=== PATIENT | female | born 1995 | race Caucasian/White ===

== ENCOUNTER 2018-02-27 19:15 | Inpatient (IN) | payer OTHER ==
[~2018-02-27] VITALS: Ht 165.1 cm; Wt 77.8 kg
[2018-02-27] MEDS ORDERED: SODIUM CHLORIDE FLUSH 10ML SYR IVF ONE (20:00)
[2018-02-27] MEDS ORDERED: ONDANSETRON ODT 4 MG PO ONE ×3 (20:00→23:00)
[2018-02-27 20:21] LABS: BASOPHILS # (AUTO) 0.04 x10^3/uL (0-0.3); BASOPHILS % (AUTO) 1 % (0-1); EOSINOPHILS # (AUTO) 0.53 x10^3/uL (0-0.8); EOSINOPHILS % (AUTO) 7 % (1-7); LYMPHOCYTES # (AUTO) 2.97 x10^3/uL (1-6.1); LYMPHOCYTES % (AUTO) 38 % (22-44); MD NO; MEAN CORPUSCULAR HEMOGLOBIN 31.2 pg (27.0-34.8); MEAN CORPUSCULAR HGB CONC 33.5 g/dL (32.4-35.8); MEAN PLATELET VOLUME 8.5 fL (7.4-10.4); MONOCYTES # (AUTO) 0.71 x10^3/uL (0-1.4); MONOCYTES % (AUTO) 9 % (2-9); NEUTROPHILS # (AUTO) 3.66 x10^3/uL (1.8-8.0); NEUTROPHILS % (AUTO) 46 % (42-75); PLATELET COUNT 296 x10^3/uL (130-400); RED BLOOD COUNT 4.34 x10^6/uL (3.82-5.3); RED CELL DISTRIBUTION WIDTH 12.9 % (9.6-15.2)
[2018-02-27 20:31] LABS: ALANINE AMINOTRANSFERASE 17 U/L (12-78); ALBUMIN 3.8 g/dL (3.4-5.0); ANION GAP 9 mmol/L (5-15); CHLORIDE 110 mmol/L (98-107); CREATININE 0.69 mg/dL (0.55-1.02)
[2018-02-27 20:36] LABS: ACETAMINOPHEN 34 mcg/mL (10-30); ALKALINE PHOSPHATASE 80 U/L (45-117); BILIRUBIN,TOTAL 0.3 mg/dL (0.2-1.0); SALICYLATE LEVEL 11.8 mg/dL (2.8-20.0); TOTAL PROTEIN 7.7 g/dL (6.4-8.2)
[2018-02-27] MEDS ORDERED: ONDANSETRON ODT 4 MG ONE ×2 (21:44→22:22)
[2018-02-27] MEDS ORDERED: NS + 40MEQ KCL 1,000 ML IV SCH (23:00)
[2018-02-27] MEDS ORDERED: NS + 40MEQ KCL 1,000 ML IV ONE (23:16)
[2018-02-27 23:26] LABS: AMPHETAMINE SCREEN, URINE Negative (Negative); BARBITURATE SCREEN, URINE Negative (Negative); BENZODIAZEPINE SCREEN, URINE Negative (Negative); CANNABINOID SCREEN, URINE Negative (Negative); COCAINE SCREEN, URINE Negative (Negative); METHADONE SCREEN, URINE Negative (Negative); OPIATE SCREEN, URINE Negative (Negative)
[2018-02-27] MEDS ORDERED: PROMETHAZINE 25 MG/ML, 1ML ONE (23:27)
[2018-02-27] MEDS ORDERED: PROMETHAZINE 25 MG/ML, 1ML IM ONE (23:30)
[2018-02-28 00:12] LABS: SALICYLATE LEVEL 22.6 mg/dL (2.8-20.0)
[2018-02-28] MEDS ORDERED: SODIUM CHLORIDE 0.9% 1,000 ML IV SCH (01:13)
[2018-02-28] MEDS ORDERED: PROMETHAZINE 25 MG/ML, 1ML IM PRN (01:30)
[2018-02-28] MEDS ORDERED: ONDANSETRON 2MG/ML, 2ML IVPush PRN (01:30)
[2018-02-28] MEDS ORDERED: DOCUSATE 100 MG CAPSULE PO PRN (01:30)
[2018-02-28] MEDS ORDERED: ONDANSETRON ODT 4 MG PO PRN (01:30)
[2018-02-28 01:45] LABS: FREE T4 (FREE THYROXINE) 1.2 ng/dL (0.76-1.46); THYROID STIMULATING HORMONE 1.2 mIU/L (0.358-3.740)
[2018-02-28 02:27] LABS: SALICYLATE LEVEL 19.7 mg/dL (2.8-20.0)
[2018-02-28] MEDS ORDERED: PROMETHAZINE 25 MG/ML, 1ML ONE (03:13)
[2018-02-28 03:50] VITALS: BP 102/69
[2018-02-28 05:05] LABS: SALICYLATE LEVEL 17.2 mg/dL (2.8-20.0)
[2018-02-28 06:47] LABS: SALICYLATE LEVEL 15.7 mg/dL (2.8-20.0)
[2018-02-28 09:19] VITALS: BP 127/73
[2018-02-28] MEDS ORDERED: POTASSIUM CHLORIDE 20 MEQ TAB.ER.PRT PO ONE (09:30)
[2018-02-28 14:30] VITALS: BP 120/72
[2018-02-28 14:46] LABS: ANION GAP 5 mmol/L (5-15); CALCIUM 8.6 mg/dL (8.5-10.1); CHLORIDE 112 mmol/L (98-107); CREATININE 0.65 mg/dL (0.55-1.02); SALICYLATE LEVEL 9.5 mg/dL (2.8-20.0)
[2018-02-28 14:47] LABS: ACETAMINOPHEN < 2 mcg/mL (10-30)
[2018-02-28 19:01] VITALS: BP 103/66
[2018-03-01 00:46] VITALS: BP 100/64
[2018-03-01 05:51] LABS: BASOPHILS # (AUTO) 0.03 x10^3/uL (0-0.3); BASOPHILS % (AUTO) 0 % (0-1); EOSINOPHILS # (AUTO) 0.29 x10^3/uL (0-0.8); EOSINOPHILS % (AUTO) 5 % (1-7); LYMPHOCYTES # (AUTO) 2.38 x10^3/uL (1-6.1); LYMPHOCYTES % (AUTO) 37 % (22-44); MD NO; MEAN CORPUSCULAR HEMOGLOBIN 31.5 pg (27.0-34.8); MEAN CORPUSCULAR HGB CONC 34.1 g/dL (32.4-35.8); MEAN CORPUSCULAR VOLUME 92.4 fL (80-100); MEAN PLATELET VOLUME 8.1 fL (7.4-10.4); MONOCYTES # (AUTO) 0.47 x10^3/uL (0-1.4); MONOCYTES % (AUTO) 7 % (2-9); NEUTROPHILS % (AUTO) 50 % (42-75); PLATELET COUNT 284 x10^3/uL (130-400); RED BLOOD COUNT 4.32 x10^6/uL (3.82-5.3); RED CELL DISTRIBUTION WIDTH 12.8 % (9.6-15.2)
[2018-03-01 06:01] LABS: CHLORIDE 110 mmol/L (98-107)
[2018-03-01 06:05] LABS: ALANINE AMINOTRANSFERASE 20 U/L (12-78); ALBUMIN 3.6 g/dL (3.4-5.0); ALKALINE PHOSPHATASE 73 U/L (45-117); ANION GAP 6 mmol/L (5-15); BILIRUBIN,TOTAL 0.6 mg/dL (0.2-1.0); CALCIUM 8.4 mg/dL (8.5-10.1); CREATININE 0.75 mg/dL (0.55-1.02); TOTAL PROTEIN 7.2 g/dL (6.4-8.2)
[2018-03-01 07:54] VITALS: BP 114/74
[2018-03-01 11:39] VITALS: BP 128/77
[2018-03-01 18:03] LABS: MICROSCOPIC INDICATED
[2018-03-01 18:17] LABS: CULTURE INDICATED? YES
[2018-03-01 19:45] VITALS: BP 113/78
[2018-03-02 07:48] VITALS: BP 128/95
[2018-03-02 19:37] VITALS: BP 113/77
[2018-03-03 07:37] VITALS: BP 119/79
== END 2018-03-03 13:54 | DRG 918 ==
LOC: ED 19:59 → EDIP 02-28 01:34 → 3NE 02-28 03:39 → 3E 03-01 11:37
PROVIDERS: ADMIT Internal Medicine; ATTEND Internal Medicine
DX: T39.1X2A Poisoning by 4-Aminophenol derivatives, intentional self-harm, initial encounter (principal); E06.3 Autoimmune thyroiditis; E87.6 Hypokalemia; T39.012A Poisoning by aspirin, intentional self-harm, initial encounter; Z80.8 Family history of malignant neoplasm of other organs or systems; Y92.89 Other specified places as the place of occurrence of the external cause
CPT/HCPCS: 36415; 80048; 80053; 80307; 80329; 81001; 83735; 84439; 84443; 84703; 85025; 87086; 96372; 99285; J2550; Q0162; G0480; J3480